=== PATIENT | female | born 1985 | race African-American/Black ===

== ENCOUNTER 2019-03-05 23:15 | Inpatient (IN) | payer MEDICAID ==
[~2019-03-05] VITALS: Ht 165.1 cm; Wt 135.6 kg
[2019-03-05] MEDS ORDERED: SODIUM CHLORIDE 0.9% 1,000 ML IV ONE ×2 (23:56)
[2019-03-05] MEDS ORDERED: ONDANSETRON HCL 4MG/2ML INJ IV STA (23:56)
[2019-03-05] MEDS ORDERED: MORPHINE SULFATE 4 MG/ML CPJ (NOT FOR IM USE) IV STA (23:56)
[2019-03-06] MEDS ORDERED: CEFTRIAXONE 1 G PREMIX 50 ML IV ONE (00:15)
[2019-03-06 01:01] LABS: BASOPHILS % 0.2 % (0.0-2.0); EOSINOPHILS % 0.1 % (0.0-5.0); HEMATOCRIT. 36.6 % (36.0-48.0); HEMOGLOBIN. 11.9 g/dL (12.0-16.0); LYMPHOCYTES % 9.8 % (20.0-50.0); MEAN CORPUSCULAR HEMOGLOBIN 27.8 pg (28.0-32.0); MEAN CORPUSCULAR VOLUME 85.6 fL (81.0-99.0); MEAN PLATELET VOLUME 9.4 fl (7.4-10.4); NEUTROPHILS % 87.9 % (40.0-76.0); PLATELET 298 x1000/uL (130-400); RED BLOOD CELL COUNT 4.27 mill/uL (4.2-5.4); RED CELL DISTRIBUTION WIDTH 16.1 % (11.6-14.6)
[2019-03-06 01:07] LABS: PROTHROMBIN TIME 10.2 sec (9.6-11.0)
[2019-03-06 01:08] LABS: CHLORIDE 102 mEq/L (98-107)
[2019-03-06 01:15] LABS: ETHANOL BLOOD < 10 mg/dL
[2019-03-06 01:37] LABS: B-HCG QUANTITATIVE 9501 mIU/mL (<3)
[2019-03-06] MEDS ORDERED: ETOMIDATE 2MG/ML 10ML VIAL IV ONE (03:01)
[2019-03-06] MEDS ORDERED: LIDOCAINE HCL/PF 1% 10 MG/ML 5ML VIAL ONE (03:03)
[2019-03-06] MEDS ORDERED: MIDAZOLAM HCL 2 MG/2 ML VIAL ONE (03:04)
[2019-03-06] MEDS ORDERED: FENTANYL CITRATE/PF 50MCG/ML 2ML VIAL ONE (03:05)
[2019-03-06] MEDS ORDERED: CEFAZOLIN SODIUM 1000MG/VIAL ONE (03:38)
[2019-03-06] MEDS ORDERED: SODIUM CHLORIDE 0.9% 10ML VIAL ONE (03:39)
[2019-03-06] MEDS ORDERED: PROPOFOL 200MG/20ML VIAL IV ONE (03:59)
[2019-03-06] MEDS ORDERED: ROCURONIUM BROMIDE 10MG/ML VIAL 5ML IV ONE (04:06)
[2019-03-06 04:36] LABS: CLARITY URINE CLOUDY (CLEAR); COLOR URINE YELLOW (YELLOW); KETONES URINE 2+ (NEGATIVE); LEUKOCYTE ESTERASE URINE 1+ (NEGATIVE); NITRITE URINE NEGATIVE (NEGATIVE); OCCULT BLOOD URINE 2+ (NEGATIVE); PH URINE 5.5 (4.5-8.0); PROTEIN URINE 2+ (NEGATIVE); SPECIFIC GRAVITY URINE 1.021 (1.005-1.030); UROBILINOGEN URINE 0.2 E.U./dL (0.2-1.0)
[2019-03-06] MEDS ORDERED: METOCLOPRAMIDE HCL 10MG/2ML VIAL ONE (04:57)
[2019-03-06] MEDS ORDERED: ONDANSETRON HCL 4MG/2ML INJ ONE (04:57)
[2019-03-06] MEDS ORDERED: HYDROMORPHONE HCL/PF 2MG/ML CPJ IV PRN (05:00)
[2019-03-06] MEDS ORDERED: ONDANSETRON HCL 4MG/2ML INJ IV PRN (05:00)
[2019-03-06] MEDS ORDERED: FENTANYL CITRATE/PF 50MCG/ML 2ML VIAL IV PRN (05:00)
[2019-03-06] MEDS ORDERED: NEOSTIGMINE METHYLSULFATE 1MG/ML 10 ML VIAL ONE (05:02)
[2019-03-06] MEDS ORDERED: GLYCOPYRROLATE 0.2 MG/ML 2ML VIAL ONE (05:03)
[2019-03-06] MEDS ORDERED: HYDROMORPHONE HCL/PF 2MG/ML (OR) ONE (05:21)
[2019-03-06] MEDS ORDERED: KETOROLAC 60MG/2ML VIAL IM NR (05:30)
[2019-03-06 06:10] LABS: *BARBITURATES SCREEN URINE NEGATIVE (NEGATIVE); *BENZODIAZEPINES SCREEN URINE NEGATIVE (NEGATIVE); *COCAINE SCREEN URINE NEGATIVE (NEGATIVE)
[2019-03-06 06:11] LABS: CANNABINOID URINE SCREEN NEGATIVE (NEGATIVE); METHADONE URINE SCREEN NEGATIVE (NEGATIVE); OPIATES URINE SCREEN NEGATIVE (NEGATIVE); PHENCYCLIDINE URINE SCREEN NEGATIVE (NEGATIVE)
[2019-03-06 06:13] LABS: *AMPHETAMINES SCREEN URINE PRESUMTIVE POSITIVE (NEGATIVE)
[2019-03-06 07:48] VITALS: BP 146/93
[2019-03-06] MEDS: DEXT 5%/0.45% NACL KCL 20MEQ/L 1,000 ML IV SCH ×2 (08:30→10:52)
[2019-03-06] MEDS: KETOROLAC 30MG/ML VIAL IV SCH ×3 (08:31→22:16)
[2019-03-06] MEDS: FAMOTIDINE 20MG/2ML VIAL IV SCH ×2 (08:32→22:11)
[2019-03-06] MEDS: ONDANSETRON HCL 4MG/2ML INJ IV PRN (09:35)
[2019-03-06 12:00] VITALS: BP 135/53
[2019-03-06] MEDS: CEFAZOLIN 1000MG PREMIX 50 ML IV SCH ×2 (14:24→22:11)
[2019-03-06 16:00] VITALS: BP 126/67
[2019-03-06 20:00] VITALS: BP 147/77
[2019-03-07 04:00] VITALS: BP 150/83
[2019-03-07] MEDS: DEXT 5%/0.45% NACL KCL 20MEQ/L 1,000 ML IV SCH ×2 (04:30→14:08)
[2019-03-07] MEDS: KETOROLAC 30MG/ML VIAL IV SCH (06:12)
[2019-03-07] MEDS: CEFAZOLIN 1000MG PREMIX 50 ML IV SCH (06:13)
[2019-03-07 08:00] VITALS: BP 133/67
[2019-03-07] MEDS ORDERED: TETANUS, DIPHTHERIA, PERTUSSIS VAC/PF 0.5ML (>7YR OLD) IM ONE (08:00)
[2019-03-07] MEDS: FAMOTIDINE 20MG/2ML VIAL IV SCH ×2 (08:00→21:15)
[2019-03-07] MEDS ORDERED: INFLUENZA VIRUS VACCINE(AFLURIA) 0.5ML SYR IM ONE (10:00)
[2019-03-07 12:00] VITALS: BP 132/71
[2019-03-07] MEDS: HYDROMORPHONE HCL/PF 2MG/ML CPJ IV PRN (14:18)
[2019-03-07] MEDS: ONDANSETRON HCL 4MG/2ML INJ IV PRN (14:19)
[2019-03-07 16:00] VITALS: BP 147/76
[2019-03-07] MEDS ORDERED: DEXT 5%/0.45% NACL KCL 20MEQ/L 1,000 ML IV SCH (19:00)
[2019-03-07 20:00] VITALS: BP 128/71
[2019-03-08] VITALS: BP 132/74
[2019-03-08 04:00] VITALS: BP 143/77
[2019-03-08 08:00] VITALS: BP 155/79
[2019-03-08] MEDS: FAMOTIDINE 20MG/2ML VIAL IV SCH ×2 (08:23→20:22)
[2019-03-08] MEDS: HYDROMORPHONE HCL/PF 2MG/ML CPJ IV PRN (11:21)
[2019-03-08] MEDS: DEXT 5%/0.45% NACL KCL 20MEQ/L 1,000 ML IV SCH (11:21)
[2019-03-08 11:36] VITALS: BP 163/97
[2019-03-08 16:03] VITALS: BP 166/93
[2019-03-08 20:00] VITALS: BP 149/90
[2019-03-08] MEDS: ACETAMINOPHEN 650MG SUPP PR PRN (20:26)
[2019-03-08] MEDS: LABETALOL HCL 100MG TABLET PO SCH (21:36)
[2019-03-09] VITALS: BP 147/77
[2019-03-09] MEDS: DEXT 5%/0.45% NACL KCL 20MEQ/L 1,000 ML IV SCH (00:48)
[2019-03-09 04:00] VITALS: BP 150/97
[2019-03-09 07:01] LABS: HEMATOCRIT 21.1 % (36.0-48.0); HEMOGLOBIN 7.1 g/dL (12.0-16.0); MEAN CORPUSCULAR HEMOGLOBIN 28.4 pg (28.0-32.0); MEAN CORPUSCULAR VOLUME 84.7 fL (81.0-99.0); PLATELET 222 x1000/uL (130-400); RED BLOOD CELL COUNT 2.49 mill/uL (4.2-5.4); RED CELL DISTRIBUTION WIDTH 15.1 % (11.6-14.6)
[2019-03-09 08:00] VITALS: BP 147/85
[2019-03-09 08:09] VITALS: BP_SYST 147; BP_SYST 150; BP_DIAS 85; BP_DIAS 97
[2019-03-09] MEDS: LABETALOL HCL 100MG TABLET PO SCH (08:30)
[2019-03-09] MEDS: FAMOTIDINE 20MG/2ML VIAL IV SCH (08:30)
[2019-03-09 12:00] VITALS: BP 179/98
[2019-03-09] MEDS: ACETAMINOPHEN 650MG SUPP PR PRN (12:02)
== END 2019-03-09 16:35 | disposition home or self-care (01) | DRG 545 ==
LOC: ER 23:15 → EDBEDREQ 03-06 02:27 → EDBEDREQTM 03-06 02:27 → CANRESERV 03-06 03:59 → ENRESERV 03-06 03:59 → 6EST 03-06 05:30 → EDBEDREQSVC 03-06 05:47 → ENRESERV 03-06 05:48
PROVIDERS: ADMIT Specialist; ATTEND Specialist
PROC: 0UT60ZZ Resection of Left Fallopian Tube, Open Approach (ICD-10-PCS; principal; 2019-03-06)
PROC: 10T20ZZ Resection of Products of Conception, Ectopic, Open Approach (ICD-10-PCS; 2019-03-06)
DX: O00.90 Unspecified ectopic pregnancy without intrauterine pregnancy (principal); K66.1 Hemoperitoneum; E66.01 Morbid (severe) obesity due to excess calories; Z68.42 Body mass index [BMI] 45.0-49.9, adult; D62 Acute posthemorrhagic anemia; O08.89 Other complications following an ectopic and molar pregnancy; D25.9 Leiomyoma of uterus, unspecified; I10 Essential (primary) hypertension; F15.10 Other stimulant abuse, uncomplicated; F17.210 Nicotine dependence, cigarettes, uncomplicated
CPT/HCPCS: 36415; 76700; 76801; 80305; 80320; 81003; 83605; 84145; 84702; 85027; 86850; 86900; 88305; 90686; 90715; 99285; J0690; J0696; J1170; J1885; J2250; J2270; J2405; J2704; J2710; J2765; J3010; J3490; J7030; G0480

== ENCOUNTER 2021-07-10 01:42 | Emergency (ER) | payer MEDICAID ==
[~2021-07-10] VITALS: Ht 167.6 cm; Wt 139.0 kg
[2021-07-10] MEDS ORDERED: CEFTRIAXONE SODIUM 500 MG/VIAL IM ONE (02:45)
[2021-07-10] MEDS ORDERED: LIDOCAINE HCL 1% 20ML VIAL (Pyxis) INJ INFIL ONE (02:45)
[2021-07-10] MEDS ORDERED: METR-167 MT (03:56)
[2021-07-10] MEDS ORDERED: DOXY100C5 MT (03:56)
[2021-07-10 05:31] VITALS: BP 165/85
[2021-07-13 04:08] LABS: NEISSERIA GONORRHOEAE NAA Negative (Negative)
== END 2021-07-10 05:33 | disposition home or self-care (01) ==
LOC: ER 01:42
DX: M25.561 Pain in right knee (principal); A59.9 Trichomoniasis, unspecified; A64 Unspecified sexually transmitted disease; I10 Essential (primary) hypertension; F12.10 Cannabis abuse, uncomplicated
CPT/HCPCS: 73562; 87210; 87491; 87591; 96372; 99284; J0696; J3490

== ENCOUNTER 2022-07-05 10:24 | Emergency (ER) | payer MEDICAID ==
[~2022-07-05] VITALS: Ht 157.5 cm; Wt 136.0 kg
[~2022-07-05 10:24] MED LIST: DOXY100C5 MT; METR-167 MT
[2022-07-05 10:27] VITALS: BP 160/97
[2022-07-05] MEDS ORDERED: TETANUS, DIPHTHERIA, PERTUSSIS VAC/PF 0.5ML (>10YR OLD) IM ONE (11:00)
[2022-07-05] MEDS ORDERED: ACETAMINOPHEN 325MG TABLET PO ONE (11:00)
[2022-07-05] MEDS ORDERED: IBUP-2030 MT (13:12)
[2022-07-05] MEDS ORDERED: AMOX1TAB16 MT (13:12)
== END 2022-07-05 13:45 | disposition home or self-care (01) ==
LOC: ER 10:24
DX: S91.331A Puncture wound without foreign body, right foot, initial encounter (principal); I10 Essential (primary) hypertension; W22.09XA Striking against other stationary object, initial encounter; Y93.01 Activity, walking, marching and hiking; Y92.89 Other specified places as the place of occurrence of the external cause
CPT/HCPCS: 73630; 81025; 90471; 90715; 99283